=== PATIENT | male | born 1945 | race Caucasian/White ===

== ENCOUNTER 2016-09-11 13:08 | Emergency (ER) | payer MEDICARE | END 2016-09-11 15:15 | disposition home or self-care (01) | LOC: ER1 13:08 | DX: S20.211A Contusion of right front wall of thorax, initial encounter (principal); I11.9 Hypertensive heart disease without heart failure; Z95.2 Presence of prosthetic heart valve; Z95.0 Presence of cardiac pacemaker; Z88.5 Allergy status to narcotic agent; Z79.01 Long term (current) use of anticoagulants; Y92.22 Religious institution as the place of occurrence of the external cause; W01.198A Fall on same level from slipping, tripping and stumbling with subsequent striking against other object, initial encounter | CPT/HCPCS: 71101; 99284 ==

== ENCOUNTER → 2021-10-12 | Outpatient (CLI) | payer MEDICARE ==
[~2021-10-12] MED LIST: ASPIRIN EC81 MG PO; ATORVASTATIN CA10 MG PO; CARTIA XT240 MG PO; COREG 25MG TAB25 MG PO; D3-200050 MCG PO; FUROSEMIDE40 MG PO; K-DUR TAB 20 M20 MEQ PO; VIT B12 PO; WARFARIN SODIUM5 MG PO; ZAROXOLYN/DIUL2.5 MG PO
== END ==
LOC: KOH-I 09:52
DX: R06.02 Shortness of breath (principal); J98.4 Other disorders of lung
CPT/HCPCS: 71046

== ENCOUNTER → 2021-10-18 | Outpatient (CLI) | payer MEDICARE | LOC: HEART 5 10:20 | DX: R06.02 Shortness of breath (principal) | CPT/HCPCS: 94060; 94729 ==

== ENCOUNTER → 2021-11-23 | Outpatient (CLI) | payer MEDICARE | LOC: CT 14:03 | DX: R06.02 Shortness of breath (principal); R91.1 Solitary pulmonary nodule; R91.8 Other nonspecific abnormal finding of lung field; R93.89 Abnormal findings on diagnostic imaging of other specified body structures; J90 Pleural effusion, not elsewhere classified; R59.0 Localized enlarged lymph nodes | CPT/HCPCS: 71260; Q9967 ==

== ENCOUNTER → 2021-11-25 | Outpatient (CLI) | payer MEDICARE | LOC: LAB 10:08 | PROVIDERS: Physician Assistant | DX: R79.89 Other specified abnormal findings of blood chemistry (principal) | CPT/HCPCS: 36415; 80048 ==

== ENCOUNTER → 2021-12-06 | Outpatient (CLI) | payer MEDICARE | LOC: CT 09:02 | DX: R59.1 Generalized enlarged lymph nodes (principal); N32.89 Other specified disorders of bladder; K59.00 Constipation, unspecified; R59.9 Enlarged lymph nodes, unspecified | CPT/HCPCS: Q9965 ==